=== PATIENT | female | born 1965 | race Caucasian/White ===

== ENCOUNTER 2018-10-21 15:49 | Emergency (ER) | payer BC ==
[2018-10-21 16:02] VITALS: BP 118/82
--- NOTE | 2018-10-21 16:13 | UC ---
Skin Complaint HPI - HPI Summary HPI Summary: 53 year old female presents with onset of itchy, tender rash to her left upper back and left anterior chest today. States she has noticed some intense itching and a "tingling" sensation in the same area for about 5-7 days before noticing the rash. Denies fever, chills, swelling of lips, tongue, throat, difficulty breathing, changes in soaps, detergents, lotions, perfumes, cosmetics, medications, diet, or contact with known environmental irritants. 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 breast biopsy - Family History Known Family History: Positive: Non-Contributory - Social History Occupation: Employed Full-time Lives: With Family Alcohol Use: Daily Substance Use Type: None Smoking Status (MU): Never Smoked Tobacco Review of Systems All Other Systems Reviewed And Are Negative: Yes Constitutional: Negative: Fever, Chills Skin: Positive: Rash Respiratory: Positive: Negative Cardiovascular: Positive: Negative Gastrointestinal: Positive: Negative Genitourinary: Positive: Negative Musculoskeletal: Positive: Negative Physical Exam - Summary Physical Exam Summary: GENERAL APPEARANCE: Well developed, well nourished, alert and cooperative, and appears to be in no acute distress. CARDIAC: Normal S1 and S2. No S3, S4 or murmurs. Rhythm is regular. There is no peripheral edema, cyanosis or pallor. Extremities are warm and well perfused. Capillary refill is less than 2 seconds. LUNGS: Clear to auscultation without rales, rhonchi, wheezing or diminished breath sounds. ABDOMEN: Positive bowel sounds. Soft, nondistended, nontender. No guarding or rebound. No masses or hepatosplenomegally. MUSKULOSKELETAL: ROM intact to all extremities. No joint erythema or tenderness. Normal muscular development. Normal gait. SKIN: There are 2 patches of mildly tender vesicular-like areas of erythema to left posterior back and anterior chest within the same dermatome that is suspicious for an early herpes zoster. Triage Information Reviewed: Yes Vital Signs: Initial Vital Signs Temp 99.1 F 10/21/18 15:57 Pulse 78 10/21/18 15:57 Resp 16 10/21/18 15:57 BP 118/82 10/21/18 15:57 Pulse Ox 100 10/21/18 15:57 Vital Signs Reviewed: Yes Course/Dx - Course Course Of Treatment: 53 year old female presents with onset of itchy, tender rash to her left upper back and left anterior chest today. States she has noticed some intense itching and a "tingling" sensation in the same area for about 5-7 days before noticing the rash. Denies fever, chills, swelling of lips , tongue, throat, difficulty breathing, changes in soaps, detergents, lotions, perfumes, cosmetics, medications, diet, or contact with known environmental irritants. Afebrile. VSS. Exam revealed 2 patches of mildly tender vesicular- like areas of erythema to left posterior back and anterior chest within the same dermatome that is suspicious for an early herpes zoster. Will start on valacyclovir 1 gm TID x 7 days. She is to follow up with her PCP if symptoms do not improve. Warning symptoms reviewed with patient. Verbalizes understanding and agrees with POC. - Differential Diagnoses - Skin Complaint Differential Diagnoses: Allergic Reaction, Cellulitis, Contact Dermatitis, Urticaria, Varicella Zoster - Diagnoses Provider Diagnosis: Herpes zoster Discharge - Sign-Out/Discharge Documenting (check all that apply): Patient Departure All imaging exams completed and their final reports reviewed: No Studies - Discharge Plan Condition: Stable Disposition: HOME Prescriptions: Valacyclovir HCl [Valacyclovir] 1 gm PO TID #21 tab Patient Education Materials: Shingles (ED) Referrals: Sophie Arevalo NP [Primary Care Provider] - Additional Instructions: Your rash is suspicious for early shingles. We will start you on an antiviral medication to help minimize and reduce the severity of symptoms. Start valacyclovir 1 gm three times a day for 7 days. You may use over the counter diphenhydramine (Benadryl) according to directions as needed for itching. Take ibuprofen (Advil, Motrin) or naproxen (Aleve) according to directions as needed for pain. Follow up with your primary care provider in 5 days if symptoms do not improve. Seek immediate medical attention in the emergency room if you develop fever greater than 100.5 F, have swelling of the lips, tongue, or throat, difficulty breathing, or any worsening of symptoms. - Billing Disposition and Condition Condition: STABLE Disposition: Home
== END 2018-10-21 16:30 | disposition home or self-care (01) ==
LOC: UCEAST 15:49
DX: B02.9 Zoster without complications (principal)
CPT/HCPCS: 99212; G0463